=== PATIENT | male | born 2000 | race Caucasian/White ===

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

== ENCOUNTER 2024-02-12 19:22 | Emergency (ER) | payer BC, OTHER ==
[2024-02-12] MEDS: Sodium Chloride 0.9% 1,000 ML IV ONE (20:53)
[2024-02-12] MEDS: diphenhydrAMINE 50 MG/ML SDV IVPUSH ONE (20:53)
[2024-02-12] MEDS: Metoclopramide 10 MG/2 ML SDV IVPUSH ONE (20:53)
[2024-02-12] MEDS: Ketorolac 30 MG/ML SDV IVPUSH ONE (20:53)
[2024-02-12] MEDS: Sodium Chloride 0.9% 10 ML Syringe FLUSH PRN (20:54)
== END 2024-02-12 22:44 | disposition home or self-care (01) ==
LOC: JD.ED 19:22
DX: G44.209 Tension-type headache, unspecified, not intractable (principal); G43.909 Migraine, unspecified, not intractable, without status migrainosus; Z86.16 Personal history of COVID-19
CPT/HCPCS: 70450; 96374; 96375; 99284; J1200; J1885; J2765; J3490; J7030